=== PATIENT | male | born 1960 | race Caucasian/White ===

== ENCOUNTER 2021-10-26 23:11 | Emergency (ER) | payer OTHER ==
[2021-10-26] MEDS ORDERED: Lidocaine 1% with EPINEPHrine 1:100,000 50 ML MDV INFILT STA (23:30)
[2021-10-26 23:37] VITALS: BP 130/77; PULSE 83
[2021-10-26] MEDS ORDERED: Diphtheria,Pertussis(Acell),Tetanus Vaccine 0.5 ML Syringe IM ONE (23:49)
== END 2021-10-27 00:02 ==
LOC: JP.ED 23:11
DX: S01.511A Laceration without foreign body of lip, initial encounter (principal); Z72.0 Tobacco use; Z23 Encounter for immunization; Y09 Assault by unspecified means
CPT/HCPCS: 12011; 12014; 90471; 90715; 99281; 99283-25

== ENCOUNTER 2022-07-06 12:12 | Emergency (ER) | payer SELFPAY ==
[2022-07-06 12:15] VITALS: BP 129/77; PULSE 59
[2022-07-06] MEDS ORDERED: Meclizine 25 MG Tab PO ONE (12:28)
== END 2022-07-06 13:36 | disposition home or self-care (01) ==
LOC: JP.ED 12:12
DX: H81.20 Vestibular neuronitis, unspecified ear (principal); F17.210 Nicotine dependence, cigarettes, uncomplicated
CPT/HCPCS: 70450; 99283; A9270

== ENCOUNTER 2022-09-23 14:21 | Emergency (ER) | payer OTHER ==
[2022-09-23 14:25] VITALS: BP 132/71; PULSE 93
== END 2022-09-23 15:31 | disposition home or self-care (01) ==
LOC: JP.ED 14:21
DX: H81.09 Meniere's disease, unspecified ear (principal); Z72.0 Tobacco use
CPT/HCPCS: 99283

== ENCOUNTER 2025-02-24 12:34 | Emergency (ER) | payer MEDICARE, OTHER ==
[2025-02-24 12:53] VITALS: BP 143/79; PULSE 98
[2025-02-24] MEDS: Ketorolac 15 MG/ML SDV IM ONE (14:06)
[2025-02-24] MEDS: Acetaminophen 1,000 MG in Premix Bag 1 BAG IV ONE (15:15)
== END 2025-02-24 15:24 | disposition home or self-care (01) ==
LOC: JP.ED 12:34
DX: M54.50 Low back pain, unspecified (principal); F17.210 Nicotine dependence, cigarettes, uncomplicated; Z79.899 Other long term (current) drug therapy
CPT/HCPCS: 72100; 96372; 99284; J1885; 99282

== ENCOUNTER 2025-02-26 11:15 | Emergency (ER) | payer MEDICARE ==
[2025-02-26 11:35] VITALS: BP 104/54; PULSE 113
== END 2025-02-26 12:16 | disposition home or self-care (01) ==
LOC: JP.ED 11:15
DX: M54.50 Low back pain, unspecified (principal); Z79.899 Other long term (current) drug therapy
CPT/HCPCS: 99283